=== PATIENT | male | born 1970 | race African-American/Black ===

== ENCOUNTER 2017-05-19 20:06 | Emergency (ER) | payer OTHER ==
[~2017-05-19] VITALS: Ht 170.2 cm; Wt 125.0 kg
[2017-05-19] MEDS ORDERED: MORPHINE SULFATE 4 MG/ML CPJ (NOT FOR IM USE) IV STA (20:14)
[2017-05-19] MEDS ORDERED: SODIUM CHLORIDE 0.9% 1,000 ML IV ONE (20:14)
[2017-05-19] MEDS ORDERED: BACITRACIN ZINC OINT UDPKT TOP ONE (20:15)
[2017-05-19] MEDS ORDERED: TETANUS, DIPHTHERIA, PERTUSSIS VAC/PF 0.5ML (>7YR OLD) IM ONE (20:15)
[2017-05-19] MEDS ORDERED: LIDOCAINE HCL/EPINEPHRINE 1%-EPI 1:100,000 20 ML VIAL INFIL ONE (20:15)
[2017-05-19 20:49] LABS: BASOPHILS % 0.7 % (0.0-2.0); CHLORIDE 99 mEq/L (98-107); EOSINOPHILS % 2.5 % (0.0-5.0); HEMATOCRIT. 49.7 % (42.0-52.0); HEMOGLOBIN. 16.4 g/dL (14.0-18.0); LYMPHOCYTES % 52.3 % (20.0-50.0); MEAN CORPUSCULAR HEMOGLOBIN 27.1 pg (28.0-32.0); MEAN PLATELET VOLUME 8.6 fl (7.4-10.4); MONOCYTES % 9.3 % (2.0-8.0); NEUTROPHILS % 35.2 % (40.0-76.0); PLATELET 246 x1000/uL (130-400); RED BLOOD CELL COUNT 6.07 mill/uL (4.7-6.1); RED CELL DISTRIBUTION WIDTH 14.5 % (11.6-14.6)
[2017-05-19 20:54] LABS: INR 1.1; PARTIAL THROMBOPLASTIN TIME 22.1 sec (23.4-31.0); PROTHROMBIN TIME 11.4 sec (9.4-11.6)
[2017-05-19 20:57] LABS: CARBON DIOXIDE 21 mEq/L (21-32)
[2017-05-19] MEDS ORDERED: LIDOCAINE HCL 1%/EPI 1:200,000 30 ML VIAL MC NR (21:15)
[2017-05-19] MEDS ORDERED: CEFAZOLIN 1000MG PREMIX 50 ML IV ONE (23:30)
[2017-05-20 00:41] VITALS: BP 132/88
== END 2017-05-20 02:02 | disposition short-term general hospital (02) ==
LOC: ER 20:21
DX: S52.032B Displaced fracture of olecranon process with intraarticular extension of left ulna, initial encounter for open fracture type I or II (principal); S01.01XA Laceration without foreign body of scalp, initial encounter; S76.191A Other specified injury of right quadriceps muscle, fascia and tendon, initial encounter; S69.81XA Other specified injuries of right wrist, hand and finger(s), initial encounter; S80.211A Abrasion, right knee, initial encounter; E78.00 Pure hypercholesterolemia, unspecified; I10 Essential (primary) hypertension; Y00.XXXA Assault by blunt object, initial encounter; Y93.89 Activity, other specified; Y92.488 Other paved roadways as the place of occurrence of the external cause
CPT/HCPCS: 12002; 29105; 29130; 36415; 70450; 71010; 72125; 72170; 73070; 73130; 73562; 80053; 83690; 85025; 85610; 85730; 86850; 86900; 86901; 96361; 96365; 99285; J0690; J3490; J7030; L1830; X7700; Z7610; L0172